=== PATIENT | female | born 1955 | race Caucasian/White ===

== ENCOUNTER 2019-08-20 10:24 | Inpatient (IN) | payer BC ==
[~2019-08-20] VITALS: Ht 167.6 cm; Wt 143.6 kg
[~2019-08-20 10:24] MED LIST: CARV3.125 PO; CRANBERRY EXTRACT; EXENATIDE; Ecotrin325 MG PO; FENO54 PO; FISH1000; FLUT.05NI; GLIM4; GLIP2.5ER PO; HYDACE5 PO; Humalog100 UNIT/1 SC; INSDET100 SC; LOSA25 PO; METF500; METF500 PO; MINO100 PO; MULVITMIND; OYSTER SHELL 51 EACH PO; RXCLIN PO; SULTRIDS PO; TELM80; VITAMIN C500 MG PO
[2019-08-20] MEDS ORDERED: Zoloft100 MG PO (10:51)
[2019-08-20] MEDS ORDERED: LOSA50 PO (10:52)
[2019-08-20] MEDS ORDERED: GLIP5 PO (10:52)
[2019-08-20] MEDS ORDERED: Heartburn Relie20 MG PO (10:53)
[2019-08-20] MEDS ORDERED: FENO145 PO (10:53)
[2019-08-20 11:00] LABS: BASOPHILS ABSOLUTE AUTO 0.03 K/mm3 (0.00-0.23); BASOPHILS PERCENT AUTO 0 % (0-2); EOSINOPHILS ABSOLUTE AUTO 0.07 K/mm3 (0.00-0.68); EOSINOPHILS PERCENT AUTO 1 % (0-6); Hematocrit 39.9 % (33.0-51.0); IMMATURE GRAN ABSOLUTE AUTO 0.02 K/mm3 (0.00-0.10); IMMATURE GRAN PERCENT AUTO 0 % (0-1); LYMPHOCYTES ABSOLUTE AUTO 1.02 K/mm3 (0.84-5.20); LYMPHOCYTES PERCENT AUTO 13 % (21-46); MONOCYTES ABSOLUTE AUTO 0.58 K/mm3 (0.16-1.47); MONOCYTES PERCENT AUTO 7 % (4-13); Mean Corpuscular HGB 30.1 pg (26.0-34.0); Mean Corpuscular HGB Conc 32.6 g/dL (31.5-36.5); Mean Corpuscular Volume 92 fL (80-100); Mean Platelet Volume 11.3 fL (9.1-12.4); NEUTROPHILS ABSOLUTE AUTO 6.46 K/mm3 (1.96-9.15); NEUTROPHILS PERCENT AUTO 79 % (41-73); Platelet Count 246 K/mm3 (150-400); RDW Coefficient Variation 12.6 % (11.7-14.2); RDW Standard Deviation 42.7 fL (35.1-46.3); Red Blood Cell Count 4.32 M/mm3 (3.80-5.20); White Blood Cell Count 8.18 K/mm3 (4.00-11.30)
[2019-08-20 11:17] LABS: Albumin, Blood 3.8 g/dL (3.4-5.0); Bilirubin, Total 0.5 mg/dL (0.1-1.0); Bun/Creatinine Ratio 24.6 (12.0-20.0); Calcium, Blood 10.3 mg/dL (8.5-10.1); Creatinine, Blood 1.18 mg/dL (0.40-1.00); Globulin, Blood 3.9 g/dL (2.2-4.0); Potassium, Blood 4.6 mmol/L (3.5-5.5); Total Protein, Blood 7.7 g/dL (6.4-8.2)
[2019-08-20 11:28] LABS: Troponin I 1.42 ng/mL (0.000-0.040)
[2019-08-20 12:34] LABS: Magnesium, Blood 2.2 mg/dL (1.6-2.4)
[2019-08-20 12:36] LABS: Thyroid Stimulating Hormone 3.98 uIU/mL (0.360-4.800)
[2019-08-20] MEDS ORDERED: LOSARTAN POTAS100 MG PO (13:46)
[2019-08-20 13:59] LABS: International Normalized Ratio 1.06; Prothrombin Time Results 11.3 Sec (9.7-11.5)
--- NOTE | 2019-08-20 17:07 | NUR ---
ECHOCARDIOGRAM COMPLETED
--- NOTE | 2019-08-20 19:14 | NUR ---
PT ARRIVAL... PT ARRIVED ON UNIT VIA GURNEY, PT WAS ABLE TO SELF TRANSFER FROM GURNEY TO BED. PT WAS ADMITTED FOR NSTEMI AND IS ON HEPARIN GTT. PT DENIES CHEST PAIN AT THIS TIME, NITRO PATCH TO THE PT'S L UPPER CHEST WALL PLACED BY PUBLIC TRANSIT BUS DRIVER. PT'S VS STABLE, PT IS ON 4L NC WITH O2 SATS>95%. PT L/S DIM T/O. NO EDEMA NOTED ON ASSESSMENT. BT PRESENT AND HYPERACTIVE, ABD IS SOFT AND NONTENDER TO PALP. PT IS TO BE NPO AFTER MIDNIGHT FOR ANGIO IN THE AM. PT UNDERSTANDS AND IS AGREEABLE TO THIS PLAN OF CARE. PT'S AND DAUGHTER ARE AT THE BEDSIDE ON ARRIVAL. CALL LIGHT IN REACH, WILL CONTINUE TO MONITOR UNTIL REPORT IS GIVEN TO ONCOMING RN.
[2019-08-20] MEDS ORDERED: CIME400 PO (20:02)
[2019-08-20 20:11] LABS: Source, Urine Clean Catch
[2019-08-20 20:17] LABS: Bilirubin, Urine Neg (Neg); Blood, Urine 5+ (Neg); Glucose Qualitative, Urine 4+ (Neg); Ketones, Urine Neg (Neg); Leukocyte Esterase, Urine 1+ (Neg); Nitrite, Urine Neg (Neg); Protein, Urine 2+ (Neg); Specific Gravity, Urine 1.025 (1.003-1.022); Urobilinogen, Urine NORM (Normal)
[2019-08-20 20:18] LABS: Appearance, Urine Hazy (Clear); Color, Urine Yellow (P-Yellow)
[2019-08-20 20:28] LABS: Bacteria Few /hpf; Squamous Epithelial Cells Rare /hpf (Few); Uric Acid Crystals Many /hpf; White Blood Cells, Urine 0-2 /hpf (0-5)
[2019-08-21 04:31] LABS: BASOPHILS ABSOLUTE AUTO 0.04 K/mm3 (0.00-0.23); BASOPHILS PERCENT AUTO 1 % (0-2); EOSINOPHILS ABSOLUTE AUTO 0.09 K/mm3 (0.00-0.68); EOSINOPHILS PERCENT AUTO 1 % (0-6); Hematocrit 34.2 % (33.0-51.0); Hemoglobin 11.2 g/dL (11.5-16.0); IMMATURE GRAN ABSOLUTE AUTO 0.04 K/mm3 (0.00-0.10); IMMATURE GRAN PERCENT AUTO 1 % (0-1); LYMPHOCYTES ABSOLUTE AUTO 1.89 K/mm3 (0.84-5.20); LYMPHOCYTES PERCENT AUTO 27 % (21-46); MONOCYTES ABSOLUTE AUTO 0.67 K/mm3 (0.16-1.47); MONOCYTES PERCENT AUTO 10 % (4-13); Mean Corpuscular HGB 29.9 pg (26.0-34.0); Mean Corpuscular HGB Conc 32.7 g/dL (31.5-36.5); Mean Corpuscular Volume 91 fL (80-100); Mean Platelet Volume 11.2 fL (9.1-12.4); NEUTROPHILS ABSOLUTE AUTO 4.33 K/mm3 (1.96-9.15); NEUTROPHILS PERCENT AUTO 61 % (41-73); Platelet Count 220 K/mm3 (150-400); RDW Coefficient Variation 12.8 % (11.7-14.2); RDW Standard Deviation 42.1 fL (35.1-46.3); Red Blood Cell Count 3.74 M/mm3 (3.80-5.20); White Blood Cell Count 7.06 K/mm3 (4.00-11.30)
[2019-08-21 04:46] LABS: International Normalized Ratio 1.12; Prothrombin Time Results 11.9 Sec (9.7-11.5)
--- NOTE | 2019-08-21 04:53 | NUR ---
SHIFT SUMMARY: -PATIENT COOPERATIVE WITH CARE, USING CALL LIGHT APPROPRIATLY, VERY MINIMAL ASSIST WITH ADL'S -ADMISSION COMPLETED -NPO SINCE 0000 -VSS, BED LOW AND LOCKED -NO ISSUES NOTED
[2019-08-21 04:55] LABS: Alanine Aminotransfer (ALT/SGP 30 U/L (12-78); Albumin, Blood 3.4 g/dL (3.4-5.0); Alk Phos 29 U/L (50-136); Anion Gap 7 mmol/L (6-16); Aspartate Aminotrans (AST/SGOT 55 U/L (12-37); Bilirubin, Total 0.5 mg/dL (0.1-1.0); Blood Urea Nitrogen 27 mg/dL (8-24); Bun/Creatinine Ratio 22.1 (12.0-20.0); CHOL/HDL RATIO 3.3; CO2, Blood 27 mmol/L (21-32); Calcium, Blood 9.8 mg/dL (8.5-10.1); Chloride, Blood 109 mmol/L (98-108); Cholesterol 92 mg/dL (50-200); Creatinine, Blood 1.22 mg/dL (0.40-1.00); Globulin, Blood 3.3 g/dL (2.2-4.0); Glomerular Filtration Rate 47 (60-); Glucose, Blood 80 mg/dL (70-99); HDL Cholesterol 28 mg/dL (>39); Potassium, Blood 3.7 mmol/L (3.5-5.5); Sodium, Blood 143 mmol/L (136-145); Total Protein, Blood 6.7 g/dL (6.4-8.2)
[2019-08-21 04:56] LABS: LDL/HDL RATIO 1.6; Low Density Lipoprotein Chol 44 mg/dL (0-110); Triglycerides 98 mg/dL (30-160); Very Low Density Lipoprot Chol 19 mg/dL (6-32)
--- NOTE | 2019-08-21 07:25 | NUR ---
AM NOTE... ASSUMED CARE OF PT APROX 0700. PT IS A&Ox4 AND IND IN THE ROOM. PT WAS ADMITTE FOR NSTEMI. PT IS NPO FOR ANGIO THIS AM. PT'S VS STABLE, PT DENIES CHEST PAIN/PRESSURE. PT'S AND FAMILY AT THE BEDSIDE. HEPARIN GTT RUNNING PER ORDERS, VERIFIED WITH MICHAEL ONEIL. PT HAS TRACE EDEMA NOTED TO HER BLE. SB IN THE 50'S-60'S PER SUPERVISOR ADVICE. L/S CLEAR IN THE UPPER LOBES AND FINE CRACKLES NOTED IN THE BASES. BT PRESENT AND HYPOACTIVE, ABD IS SOFT AND NONTENDER TO PALP. CALL LIGHT IN REACH WILL CONTINUE TO MONITOR.
--- NOTE | 2019-08-21 14:25 | NUR ---
PT UPDATE... AT APROX 1230 PT RETURNED FROM [facility]ART [facility] W/RIGHT RADIAL SITE, NO INTERVENTIONS WERE DONE. PT IS TO BE COBRA TRANSFERED TO [facility] FOR BYPASS SURGERY. PT IS AGREEABLE TO THIS PLAN OF CARE, FAMILY UPDATED. VS STABLE, TR BAND SITE IS STABLE. WILL CONTINUE TO MONITOR.
--- NOTE | 2019-08-21 18:29 | NUR ---
SHIFT SUMMARY.. NO ACUTE NEGATIVE CHAGENGES NOTED THIS SHIFT. PT HAD ANGIO W/RIGHT WRIST SITE. NO INTEVERTIONS DONE, PT IS TO COBRA TRANSFER TO [facility] FOR BYPASS. PT'S VS STABLE AT THIS TIME. PT'S HEPARIN IS TO RESUME ONCE TR BAND HAS BEEN OFF FOR 1 HOUR. PT HAD MED SIZE HEMATOMA ON HER RIGHT FORARM, PRESSURE WAS HELD FOR 10 MINS x2, PT'S RIGHT ARM IS CURRENTLY SOFT BUT TENDER. CALL LIGHT IN REACH WILL CONTINUE TO MONITOR UNTIL REPORT IS GIVEN TO ONCOMING RN.
--- NOTE | 2019-08-21 19:30 | NUR ---
RECEIVED REPORT FROM MICHAEL HOUSER. ASSUMED CARE OF PT. IN NO ACUTE DISTRESS AT THIS TIME, RESTING COMFORTABLY. DENIES ANY CHEST PAIN, PRESSURE, N/V OR SOB AT THIS TIME. TR SITE INTACT, PULSES STRONG, DENIES NUMBNESS OR TINGLING, NO BLEEDING NOTED AT THIS TIME. CALL LIGHT AND POSSESSIONS IN REACH, WILL CONTINUE TO MONITOR.
--- NOTE | 2019-08-21 22:25 | NUR ---
SPOKE TO DR. GRECO REGARDING PT'S SCHEDULED LANTUS. ORDERS RECEIVED.
--- NOTE | 2019-08-22 07:55 | NUR ---
REPORTED OFF TO MICHAEL STOCKTON. PT SITTING UP IN CHAIR, IN NO ACUTE DISTRESS. WAS MONITORED EVERY 1-2 HOURS WITH NEEDS MET. DENIES ANY NEEDS AT THIS TIME. CALL LIGHT AND POSSESSIONS IN REACH.
--- NOTE | 2019-08-22 14:02 | NUR ---
PT WARD TRANSFERED TO [facility] REPORT CALLED TO LAURA RODRIGUEZ, AT THE TIME OF DC THE PT WAS A/OX3, PLEASANT AND COOPERATIVE, APPEARED TO BE BREATHING EASILY ON RA, DENIED C/P , PT WAS TRANSFERED VIA STRETCHER, ACCOMPANIED BY [employer]
== END 2019-08-22 14:07 | disposition short-term general hospital (02) | DRG 281 ==
LOC: ER 10:24 → ERHOLD 13:15 → PCU 13:15
PROVIDERS: Emergency Medicine; Nurse Practitioner Acute Care; ADMIT Internal Medicine
PROC: 4A023N7 Measurement of Cardiac Sampling and Pressure, Left Heart, Percutaneous Approach (ICD-10-PCS; principal; 2019-08-21)
PROC: B211YZZ Fluoroscopy of Multiple Coronary Arteries using Other Contrast (ICD-10-PCS; 2019-08-21)
DX: I21.4 Non-ST elevation (NSTEMI) myocardial infarction (principal); Z68.43 Body mass index [BMI] 50.0-59.9, adult; I42.9 Cardiomyopathy, unspecified; I50.9 Heart failure, unspecified; I11.0 Hypertensive heart disease with heart failure; E11.9 Type 2 diabetes mellitus without complications; Z79.4 Long term (current) use of insulin; E78.5 Hyperlipidemia, unspecified; K21.9 Gastro-esophageal reflux disease without esophagitis; F32.9 Major depressive disorder, single episode, unspecified
CPT/HCPCS: 36415; 71045; 80053; 80061; 81001; 82947; 83036; 83735; 83880; 84443; 84484; 85025; 85610; 85730; 87086; 90686; 93005; 93010; 93306; 93458; 94660; 94762; 96365-59; 96366; 96375-59; 99152; 99285-25; C1769; C1894; G0008; J1644; J1940; J2250; J3010; J7030; Q9967

== ENCOUNTER 2019-09-10 11:48 | Emergency (ER) | payer BC ==
[~2019-09-10] VITALS: Ht 167.6 cm; Wt 140.6 kg
[~2019-09-10 11:48] MED LIST changes: +CIME400 PO; +ELIQUIS5 MG PO; +FENO145 PO; +GLIP5 PO; +Heartburn Relie20 MG PO; +LOSA50 PO; +LOSARTAN POTAS100 MG PO; +METO50ER PO; +NASACORT10.8 ML; +OMEP20ER PO; +Pravachol40 MG PO; +Zoloft100 MG PO
[2019-09-10] MEDS ORDERED: ACETAMINOPHEN500 MG PO (12:31)
== END 2019-09-10 12:40 | disposition home or self-care (01) ==
LOC: ER 11:48
DX: S16.1XXA Strain of muscle, fascia and tendon at neck level, initial encounter (principal); M54.12 Radiculopathy, cervical region; E11.9 Type 2 diabetes mellitus without complications; Z91.048 Other nonmedicinal substance allergy status; Z88.8 Allergy status to other drugs, medicaments and biological substances; Z79.899 Other long term (current) drug therapy; Z79.82 Long term (current) use of aspirin; Z79.4 Long term (current) use of insulin; Z79.01 Long term (current) use of anticoagulants; Z95.1 Presence of aortocoronary bypass graft; X58.XXXA Exposure to other specified factors, initial encounter
CPT/HCPCS: 93005; 93010; 99283-25

== ENCOUNTER 2019-10-03 11:32 | Day surgery (SDC) | payer BC ==
[~2019-10-03 11:32] MED LIST changes: +ACETAMINOPHEN500 MG PO
== END 2019-10-03 12:00 | disposition home or self-care (01) ==
LOC: WOUND 11:32
DX: S21.101A Unspecified open wound of right front wall of thorax without penetration into thoracic cavity, initial encounter (principal); E11.9 Type 2 diabetes mellitus without complications; F32.9 Major depressive disorder, single episode, unspecified; E78.00 Pure hypercholesterolemia, unspecified; I10 Essential (primary) hypertension; E66.01 Morbid (severe) obesity due to excess calories; Z79.4 Long term (current) use of insulin; Z88.8 Allergy status to other drugs, medicaments and biological substances; Z68.42 Body mass index [BMI] 45.0-49.9, adult; Z79.899 Other long term (current) drug therapy; Z79.01 Long term (current) use of anticoagulants
CPT/HCPCS: G0463

== ENCOUNTER 2019-10-05 08:30 | Day surgery (SDC) | payer BC | END 2019-10-05 23:22 | disposition home or self-care (01) | LOC: WOUND 08:30 | DX: S21.101D Unspecified open wound of right front wall of thorax without penetration into thoracic cavity, subsequent encounter (principal); E11.9 Type 2 diabetes mellitus without complications; E78.00 Pure hypercholesterolemia, unspecified; E66.01 Morbid (severe) obesity due to excess calories; I10 Essential (primary) hypertension; Z79.4 Long term (current) use of insulin; Z68.42 Body mass index [BMI] 45.0-49.9, adult; Z79.899 Other long term (current) drug therapy; Z79.82 Long term (current) use of aspirin ==

== ENCOUNTER 2019-10-12 00:21 | Day surgery (SDC) | payer BC | END 2019-10-12 22:55 | disposition home or self-care (01) | LOC: WOUND 00:21 | DX: T81.89XA Other complications of procedures, not elsewhere classified, initial encounter (principal); I25.10 Atherosclerotic heart disease of native coronary artery without angina pectoris; E11.9 Type 2 diabetes mellitus without complications; F32.9 Major depressive disorder, single episode, unspecified; E78.00 Pure hypercholesterolemia, unspecified; E66.01 Morbid (severe) obesity due to excess calories; I10 Essential (primary) hypertension; G47.30 Sleep apnea, unspecified; Y83.2 Surgical operation with anastomosis, bypass or graft as the cause of abnormal reaction of the patient, or of later complication, without mention of misadventure at the time of the procedure | CPT/HCPCS: 87071; 87075; 87077; 87147; 87186; 87205 ==

== ENCOUNTER 2019-10-18 00:13 | Day surgery (SDC) | payer BC | END 2019-10-18 23:14 | disposition home or self-care (01) | LOC: WOUND 00:13 | DX: S21.101D Unspecified open wound of right front wall of thorax without penetration into thoracic cavity, subsequent encounter (principal); E11.9 Type 2 diabetes mellitus without complications; I10 Essential (primary) hypertension; E78.00 Pure hypercholesterolemia, unspecified; E66.01 Morbid (severe) obesity due to excess calories; F32.9 Major depressive disorder, single episode, unspecified; Z86.79 Personal history of other diseases of the circulatory system; Z79.4 Long term (current) use of insulin; Z95.1 Presence of aortocoronary bypass graft; Z68.43 Body mass index [BMI] 50.0-59.9, adult ==

== ENCOUNTER 2019-10-25 00:27 | Day surgery (SDC) | payer BC | END 2019-10-25 22:44 | disposition home or self-care (01) | LOC: WOUND 00:27 | DX: S21.101A Unspecified open wound of right front wall of thorax without penetration into thoracic cavity, initial encounter (principal); I10 Essential (primary) hypertension; E78.00 Pure hypercholesterolemia, unspecified; E11.9 Type 2 diabetes mellitus without complications; F32.9 Major depressive disorder, single episode, unspecified; E66.01 Morbid (severe) obesity due to excess calories; Z79.4 Long term (current) use of insulin; Z95.1 Presence of aortocoronary bypass graft; Z68.42 Body mass index [BMI] 45.0-49.9, adult; Z79.899 Other long term (current) drug therapy; Z79.82 Long term (current) use of aspirin ==

== ENCOUNTER 2019-11-01 00:31 | Day surgery (SDC) | payer BC | END 2019-11-01 22:39 | disposition home or self-care (01) | LOC: WOUND 00:31 | DX: S21.101A Unspecified open wound of right front wall of thorax without penetration into thoracic cavity, initial encounter (principal); E11.9 Type 2 diabetes mellitus without complications; F32.9 Major depressive disorder, single episode, unspecified; E78.00 Pure hypercholesterolemia, unspecified; E66.01 Morbid (severe) obesity due to excess calories; I10 Essential (primary) hypertension; Z79.4 Long term (current) use of insulin; Z95.1 Presence of aortocoronary bypass graft; Z86.79 Personal history of other diseases of the circulatory system; Z68.42 Body mass index [BMI] 45.0-49.9, adult; Z79.899 Other long term (current) drug therapy ==

== ENCOUNTER 2019-11-15 00:26 | Day surgery (SDC) | payer BC | END 2019-11-15 22:39 | disposition home or self-care (01) | LOC: WOUND 00:26 | DX: S21.101D Unspecified open wound of right front wall of thorax without penetration into thoracic cavity, subsequent encounter (principal); E78.00 Pure hypercholesterolemia, unspecified; E66.01 Morbid (severe) obesity due to excess calories; E11.9 Type 2 diabetes mellitus without complications; F32.9 Major depressive disorder, single episode, unspecified; I10 Essential (primary) hypertension; Z79.4 Long term (current) use of insulin; Z95.1 Presence of aortocoronary bypass graft; Z68.42 Body mass index [BMI] 45.0-49.9, adult; Z79.899 Other long term (current) drug therapy; Z79.82 Long term (current) use of aspirin ==

== ENCOUNTER 2019-11-24 00:48 | Day surgery (SDC) | payer BC | END 2019-11-24 23:11 | disposition home or self-care (01) | LOC: WOUND 00:48 | DX: S21.101D Unspecified open wound of right front wall of thorax without penetration into thoracic cavity, subsequent encounter (principal); E11.9 Type 2 diabetes mellitus without complications; F32.9 Major depressive disorder, single episode, unspecified; E78.00 Pure hypercholesterolemia, unspecified; I10 Essential (primary) hypertension; E66.01 Morbid (severe) obesity due to excess calories; Z79.4 Long term (current) use of insulin; Z68.42 Body mass index [BMI] 45.0-49.9, adult; Z79.899 Other long term (current) drug therapy; Z79.82 Long term (current) use of aspirin ==

== ENCOUNTER 2019-11-29 11:20 | Day surgery (SDC) | payer BC | END 2019-11-29 22:56 | disposition home or self-care (01) | LOC: WOUND 11:20 | DX: S21.101D Unspecified open wound of right front wall of thorax without penetration into thoracic cavity, subsequent encounter (principal); X58.XXXD Exposure to other specified factors, subsequent encounter; Z79.82 Long term (current) use of aspirin; Z79.4 Long term (current) use of insulin; Z79.899 Other long term (current) drug therapy; Z88.8 Allergy status to other drugs, medicaments and biological substances ==

== ENCOUNTER 2019-12-06 00:17 | Day surgery (SDC) | payer BC | END 2019-12-06 22:43 | disposition home or self-care (01) | LOC: WOUND 00:17 | DX: S21.101D Unspecified open wound of right front wall of thorax without penetration into thoracic cavity, subsequent encounter (principal); X58.XXXD Exposure to other specified factors, subsequent encounter; I25.10 Atherosclerotic heart disease of native coronary artery without angina pectoris; Z95.1 Presence of aortocoronary bypass graft; E11.9 Type 2 diabetes mellitus without complications; F32.9 Major depressive disorder, single episode, unspecified; I10 Essential (primary) hypertension; G47.30 Sleep apnea, unspecified; E66.01 Morbid (severe) obesity due to excess calories ==

== ENCOUNTER 2019-12-13 00:22 | Day surgery (SDC) | payer BC | END 2019-12-13 22:44 | disposition home or self-care (01) | LOC: WOUND 00:22 | DX: S21.101D Unspecified open wound of right front wall of thorax without penetration into thoracic cavity, subsequent encounter (principal); X58.XXXD Exposure to other specified factors, subsequent encounter; I25.10 Atherosclerotic heart disease of native coronary artery without angina pectoris; Z95.1 Presence of aortocoronary bypass graft; E11.9 Type 2 diabetes mellitus without complications; E66.01 Morbid (severe) obesity due to excess calories; I10 Essential (primary) hypertension; F32.9 Major depressive disorder, single episode, unspecified; Z79.82 Long term (current) use of aspirin; Z79.4 Long term (current) use of insulin; Z79.899 Other long term (current) drug therapy; Z79.01 Long term (current) use of anticoagulants ==

== ENCOUNTER 2019-12-20 00:17 | Day surgery (SDC) | payer BC | END 2019-12-20 22:44 | disposition home or self-care (01) | LOC: WOUND 00:17 | DX: S21.101D Unspecified open wound of right front wall of thorax without penetration into thoracic cavity, subsequent encounter (principal); E11.9 Type 2 diabetes mellitus without complications; E78.00 Pure hypercholesterolemia, unspecified; I10 Essential (primary) hypertension; F32.9 Major depressive disorder, single episode, unspecified; Z79.4 Long term (current) use of insulin; Z79.899 Other long term (current) drug therapy; Z79.82 Long term (current) use of aspirin | CPT/HCPCS: G0463 ==

== ENCOUNTER 2020-01-03 00:19 | Day surgery (SDC) | payer BC | END 2020-01-03 22:48 | disposition home or self-care (01) | LOC: WOUND 00:19 | DX: S21.101D Unspecified open wound of right front wall of thorax without penetration into thoracic cavity, subsequent encounter (principal); X58.XXXD Exposure to other specified factors, subsequent encounter; I25.10 Atherosclerotic heart disease of native coronary artery without angina pectoris; Z95.1 Presence of aortocoronary bypass graft; E11.9 Type 2 diabetes mellitus without complications; F32.9 Major depressive disorder, single episode, unspecified; I10 Essential (primary) hypertension; E66.01 Morbid (severe) obesity due to excess calories | CPT/HCPCS: G0463 ==

== ENCOUNTER → 2020-05-08 | Outpatient (CLI) | payer BC ==
[~2020-05-08] MED LIST changes: +Aspir 8181 MG PO; +FAMO10 PO; +HUMALOG KW100 UNIT/1; +LEVEMIR FL100 UNIT/2; +METO25ER PO; +SERT100 PO; +SERT50 PO; +XARELTO15 MG PO
[2020-05-08 18:00] LABS: Source, Urine Clean Catch
[2020-05-08 19:37] LABS: Appearance, Urine Hazy (Clear); Bilirubin, Urine Neg (Neg); Blood, Urine 5+ (Neg); Color, Urine Yellow (P-Yellow); Glucose Qualitative, Urine 4+ (Neg); Ketones, Urine 1+ (Neg); Leukocyte Esterase, Urine 1+ (Neg); Nitrite, Urine Neg (Neg); Protein, Urine 2+ (Neg); Urobilinogen, Urine NORM (Normal)
[2020-05-08 20:10] LABS: Amorphous Light (0-Heavy); Bacteria Few /hpf; Red Blood Cells, Urine 50-100 /hpf (0-2); Squamous Epithelial Cells Rare /hpf (Few)
== END | disposition home or self-care (01) ==
LOC: LAB SHORT 17:58 → OLS 17:58
PROVIDERS: Internal Medicine
DX: N39.0 Urinary tract infection, site not specified (principal)
CPT/HCPCS: 81001; 87086

== ENCOUNTER 2020-05-31 11:22 | Day surgery (SDC) | payer BC ==
[~2020-05-31] VITALS: Ht 167.6 cm; Wt 127.3 kg
== END 2020-05-31 13:20 | disposition home or self-care (01) ==
LOC: ORSCSDS 11:22
PROVIDERS: Internal Medicine Gastroenterology
PROC: 0DBH8ZX Excision of Cecum, Via Natural or Artificial Opening Endoscopic, Diagnostic (ICD-10-PCS; principal; 2020-05-31 12:30)
PROC: 0DJ08ZZ Inspection of Upper Intestinal Tract, Via Natural or Artificial Opening Endoscopic (ICD-10-PCS; principal; 2020-05-31 12:30)
PROC: 0DBL8ZX Excision of Transverse Colon, Via Natural or Artificial Opening Endoscopic, Diagnostic (ICD-10-PCS; principal; 2020-05-31 12:30)
PROC: 0DBK8ZX Excision of Ascending Colon, Via Natural or Artificial Opening Endoscopic, Diagnostic (ICD-10-PCS; principal; 2020-05-31 12:30)
DX: Z12.11 Encounter for screening for malignant neoplasm of colon (principal); Z86.010 Personal history of colon polyps; R13.10 Dysphagia, unspecified; D12.0 Benign neoplasm of cecum; D12.2 Benign neoplasm of ascending colon; D12.3 Benign neoplasm of transverse colon; K22.8 Other specified diseases of esophagus; K64.8 Other hemorrhoids; I10 Essential (primary) hypertension; E11.9 Type 2 diabetes mellitus without complications; K21.9 Gastro-esophageal reflux disease without esophagitis; G47.33 Obstructive sleep apnea (adult) (pediatric); E78.00 Pure hypercholesterolemia, unspecified; Z79.82 Long term (current) use of aspirin; I48.91 Unspecified atrial fibrillation; Z79.01 Long term (current) use of anticoagulants; Z80.0 Family history of malignant neoplasm of digestive organs
CPT/HCPCS: 82947; 88305; J2704; J7120

== ENCOUNTER 2020-06-11 14:36 | Emergency (ER) | payer BC ==
[~2020-06-11] VITALS: Ht 167.6 cm; Wt 128.8 kg
[2020-06-11] MEDS ORDERED: FAMO20 PO (15:02)
[2020-06-11] MEDS ORDERED: Bactrim Ds Tab1 EACH PO (15:02)
[2020-06-11] MEDS ORDERED: CEPH500 PO (15:02)
[2020-06-11] MEDS ORDERED: ZOLOFT100 M2 PO (15:03)
[2020-06-11] MEDS ORDERED: ELIQUIS5 MG PO (15:04)
[2020-06-11] MEDS ORDERED: LEVEMIR FL100 UNIT/2 (15:04)
== END 2020-06-11 15:08 | disposition home or self-care (01) ==
LOC: ER 14:36
DX: H60.12 Cellulitis of left external ear (principal); E11.9 Type 2 diabetes mellitus without complications; Z95.1 Presence of aortocoronary bypass graft

== ENCOUNTER 2020-12-17 17:55 | Emergency (ER) | payer BC ==
[~2020-12-17] VITALS: Ht 167.6 cm; Wt 131.5 kg
[~2020-12-17 17:55] MED LIST changes: +Bactrim Ds Tab1 EACH PO; +CEPH500 PO; +FAMO20 PO; +ZOLOFT100 M2 PO
== END 2020-12-17 21:04 | disposition home or self-care (01) ==
LOC: ER 17:55
DX: S00.01XA Abrasion of scalp, initial encounter (principal); I25.10 Atherosclerotic heart disease of native coronary artery without angina pectoris; I11.0 Hypertensive heart disease with heart failure; I50.22 Chronic systolic (congestive) heart failure; I25.810 Atherosclerosis of coronary artery bypass graft(s) without angina pectoris; Z95.1 Presence of aortocoronary bypass graft; Z79.01 Long term (current) use of anticoagulants; Z79.4 Long term (current) use of insulin; Z79.899 Other long term (current) drug therapy; Z91.09 Other allergy status, other than to drugs and biological substances; Z79.82 Long term (current) use of aspirin; W01.198A Fall on same level from slipping, tripping and stumbling with subsequent striking against other object, initial encounter
CPT/HCPCS: 70450; 99283-25

== ENCOUNTER → 2021-06-06 | Outpatient (CLI) | payer SELFPAY | END | disposition home or self-care (01) | LOC: LAB SHORT 18:06 | DX: N39.0 Urinary tract infection, site not specified (principal) | CPT/HCPCS: 87077; 87086; 87186 ==

== ENCOUNTER 2021-08-13 19:26 | Inpatient (IN) | payer MEDICARE ==
[~2021-08-13] VITALS: Ht 167.6 cm; Wt 132.2 kg
[~2021-08-13 19:26] MED LIST changes: +Pravastatin Sod40 MG PO
[2021-08-13 20:07] LABS: BASOPHILS ABSOLUTE AUTO 0.02 K/mm3 (0.00-0.23); BASOPHILS PERCENT AUTO 0 % (0-2); EOSINOPHILS PERCENT AUTO 2 % (0-6); Hematocrit 35.9 % (33.0-51.0); Hemoglobin 12.3 g/dL (11.5-16.0); IMMATURE GRAN ABSOLUTE AUTO 0.03 K/mm3 (0.00-0.10); IMMATURE GRAN PERCENT AUTO 1 % (0-1); LYMPHOCYTES ABSOLUTE AUTO 1.21 K/mm3 (0.84-5.20); LYMPHOCYTES PERCENT AUTO 25 % (21-46); MONOCYTES ABSOLUTE AUTO 0.44 K/mm3 (0.16-1.47); MONOCYTES PERCENT AUTO 9 % (4-13); Mean Corpuscular HGB 30.1 pg (26.0-34.0); Mean Corpuscular HGB Conc 34.3 g/dL (31.5-36.5); Mean Corpuscular Volume 88 fL (80-100); Mean Platelet Volume 11.5 fL (9.1-12.4); NEUTROPHILS PERCENT AUTO 63 % (41-73); Platelet Count 145 K/mm3 (150-400); RDW Coefficient Variation 12.6 % (11.7-14.2); RDW Standard Deviation 40.1 fL (35.1-46.3); Red Blood Cell Count 4.08 M/mm3 (3.80-5.20)
[2021-08-13 20:35] LABS: Albumin, Blood 3.7 g/dL (3.4-5.0); Albumin/Globulin Ratio 1.1 (0.8-1.8); Bilirubin, Total 0.6 mg/dL (0.1-1.0); Bun/Creatinine Ratio 28.1 (12.0-20.0); Calcium, Blood 9.3 mg/dL (8.5-10.1); Creatinine, Blood 1.67 mg/dL (0.40-1.00); Globulin, Blood 3.3 g/dL (2.2-4.0); Potassium, Blood 4.1 mmol/L (3.5-5.5); Troponin I 0.028 ng/mL (0.000-0.040)
--- NOTE | 2021-08-14 05:21 | NUR ---
PT ADMITTED AT APPROX 0405 FOR C/O CHEST PAIN AND ELEVATED TROPONINS. PT DENIES CP UPON ARRIVAL. VSS. DENIES SOB. TELE PLACED PER ORDERS; NSR AT 60. PLAN FOR STRESS TEST TODAY. WILL KEEP NPO.
[2021-08-14 06:45] LABS: CHOL/HDL RATIO 4.1; Cholesterol 149 mg/dL (50-200); HDL Cholesterol 36 mg/dL (>39); Low Density Lipoprotein Chol 72 mg/dL (0-110); Triglycerides 203 mg/dL (30-160); Very Low Density Lipoprot Chol 40 mg/dL (6-32)
--- NOTE | 2021-08-14 14:38 | NUR ---
Pt. was alert and welcomed my visit. Through empathetic listening, rapport was created and common connections were identified. Pt. showed some unsettledness to the lack of clarity to her diagnosis. Normalized patient experience, and facilitated life review. Pt. displayed evidence of trust and relaxation, and verbalized her gratitude for the visit. Prayed for pt.
--- NOTE | 2021-08-14 17:20 | NUR ---
OOB TO CHAIR, DENIED ANY CHEST PAIN T/O SHIFT, INDEPENDENT IN ROOM, HAD RESTING STRESS TEST DONE TODAY, STRESS PORTION IN AM, TOLERATING DIET WELL, NO ACUTE CHANGES THIS SHIFT.
--- NOTE | 2021-08-15 06:18 | NUR ---
SHIFT SUMMARY 1ST PART OF STRESS TEST COMPLETE, PENDING 2ND PART LATER TODAY, A/OX4, VSS, NO ACUTE EVENTS THIS SHIFT. CALL LIGHT IN REACH, WILL CTM AND REPORT TO DAY RN.
--- NOTE | 2021-08-15 17:14 | NUR ---
SHIFT SUMMARY: CHEST PAIN PATIENT IS ALERT AND ORIENTED X4. VS ARE WNL AND IS ON RA. PATIENT HAS DENIED CHEST PAIN AND/OR PRESSURE THROUGHOUT SHIFT. SHE HAD HER SECOND STRESS TEST DONE TODAY. DR. DOMINGUEZ HAS BODY WORK AUTO TRIMMER CONSULTED. DR. LORENZ THE BODY WORK AUTO TRIMMER WILL BE COMING IN SHORTLY TO HAVE THE CONSULT DONE. SHE IS TOLERATING PO INTAKE AND IS VOIDING. SHE IS IND. IN THE ROOM. CALLS APPROPRIATELY. CALL LIGHT WITHIN REACH. AWAITING TO HEAR WHAT DR. LORENZ HAS TO SAY TO PATIENT TO MAKE A PLAN FOR HER.
--- NOTE | 2021-08-15 17:37 | NUR ---
PATIENT WILL BE HAVING A STENT PLACED WELL HAVING HER CABG CHECKED TOMORROW. SHE WILL BE NPO AT MIDNIGHT TONIGHT. PATIENT IS AWARE AND TALKED WITH DR. LORENZ ABOUT IT. CALL LIGHT WITHIN REACH.
[2021-08-16 02:25] LABS: Influenza A, PCR NEGATIVE (NEGATIVE); Influenza B, PCR NEGATIVE (NEGATIVE); Resp Syncytial Virus, PCR NEGATIVE (NEGATIVE); SARS-Cov-2 (COVID-19) PCR, MMC NEGATIVE (NEGATIVE)
--- NOTE | 2021-08-16 04:56 | NUR ---
PHONE CALL TO PHYSICIAN RN WAS NOTIFIED BY [employer] THAT PT HAD AN EPISODE OF BRADYCARDIA AT 0450 THIS MORNING, LASTING 2-3 MINUTES. RN ASSESSED PT, WHO WAS SLEEPING. PT DENIED CHEST PAIN, SOB, DIZZINESS, OR ADVERSE SYMPTOMS. RN PLACED CALL TO HOSPITALIST DR. MOSHER. DR. MOSHER WITH ORDERS TO MONITOR PT, AND PERFORM AN EKG IF SHE EXPERIENCES ANOTHER EPISODE OF BRADYCARDIA. RN THEN CALLED OVERLOCKER JOHNNY AND REQUESTED TO BE NOTIFIED IF PT'S HEART RATE WAS LESS THAN 50.
--- NOTE | 2021-08-16 05:21 | NUR ---
SHIFT SUMMARY KEVAN DENIES CHEST PAIN, SOB, OR HEART BURN FEELING THROUGH OUT SHIFT. TELEMETRY MONITORED PT AT SINUS NICK IN 50'S - 60'S UNTIL 0450 WHEN SHE HAD A 2-3 MINUTE OF BRADYCARDIA IN THE 45-50 RANGE. RN ASSESSED PT, WHO WAS SLEEPING, WHO DENIED CP, SOB, OR DIZZINESS. KEVAN IS INDEPENDENT IN THE ROOM. PLANNING FOR CORONARY ANGIOGRAM THIS MORNING. NPO. NEGATIVE COVID TEST. WILL CONTINUE TO MONITOR.
--- NOTE | 2021-08-16 10:56 | NUR ---
PT. TO ANGIO VIA W/C AT THIS TIME. DENIES CP, PERSONAL BELONGINGS TAKEN TO PCU ROOM 19.
--- NOTE | 2021-08-16 18:36 | NUR ---
ARRIVAL PCU / SHIFT SUMMARY PT BROUGHT TO PCU-19 BY BED FROM MACHINE FIXER @ APPROX 1230 AFTER ANGIO. PT A&O X4. VSS. MONITOR SHOWING SB, HR 40's-50's. SPO2 > 92% ON RA. TR BAND RECOVERY WNL. L RADIAL ACCESS SITE W/ NO BLEEDING, NO HEMATOMA. TRANSPARENT DRESSING APPLIED & ARM BOARD IN PLACE. ORDERS FOR HEPARIN GTT TO BE INITIATED @ 2200 TONIGHT PER PHARMACY.
[2021-08-16 21:07] LABS: Anti-Xa UFH, PHA Monitoring <0.10 IU/mL; International Normalized Ratio 1.04; Prothrombin Time Results 10.9 Sec (9.7-11.5)
--- NOTE | 2021-08-17 06:11 | NUR ---
SHIFT SUMMARY ASSUMED CARE OF PT AT 1900. PT IS A/OX4. HEART SOUNDS REGULAR, LUNG SOUNDS CLEAR. HEPRIN RESTARTED AT 0. PT IS A 1P SBA TO BATHROM. NO COMPLAINTS. CALL LIGHT IN REACH, BED IN LOWEST POSITION.
--- NOTE | 2021-08-17 13:12 | NUR ---
APTT ELEVATED AT 115.6; NOTIFIED PHARMACY, PLANS TO HOLD UNTIL 1430 AND RESTART AT LOWER RATE; PLACED ON STAND BY; NOTIFIED DR GRANADO, PT REPORT SMALL BLEED FROM FOREARM WHERE OLD IV AND VEINAPUNCTURE AND SCRATCH TO EAR. WILL CONTINUE TO MONITOR.
[2021-08-17 15:44] LABS: Hematocrit 33.7 % (33.0-51.0); Hemoglobin 11.6 g/dL (11.5-16.0); Mean Corpuscular HGB 30.4 pg (26.0-34.0); Mean Corpuscular HGB Conc 34.4 g/dL (31.5-36.5); Mean Corpuscular Volume 88 fL (80-100); Mean Platelet Volume 11.7 fL (9.1-12.4); Platelet Count 153 K/mm3 (150-400); RDW Coefficient Variation 12.4 % (11.7-14.2); RDW Standard Deviation 39.8 fL (35.1-46.3); Red Blood Cell Count 3.82 M/mm3 (3.80-5.20)
[2021-08-17 16:49] LABS: Bun/Creatinine Ratio 27.4 (12.0-20.0); Calcium, Blood 8.5 mg/dL (8.5-10.1); Creatinine, Blood 1.35 mg/dL (0.40-1.00); Potassium, Blood 4.4 mmol/L (3.5-5.5)
--- NOTE | 2021-08-17 17:53 | NUR ---
SHIFT SUMMARY PT A&Ox4; CALM AND COOPERATIVE WITH CARE. PT UP IN ROOM IND T/O SHIFT. PT DENIES PAIN, CHEST PAIN, SOB, NAUSEA AND DIZZINESS. PT ON HEPARIN GTT; HELD THIS AFTERNOON PER PHARMACY FOR CRIT APTT; RESTARTED PT ORDERS AT A REDUCED RATED. SPO2 >90% ON RA. PLANS FOR POSSIBLE ANGIO TOMORROW, NPO AT [facility]. VSS. NO OTHER ACUTE CHANGES NOTED. WILL CONTINUE TO MONITOR UNTIL REPORT GIVEN TO ONCOMING RN.
--- NOTE | 2021-08-18 05:54 | NUR ---
SHIFT SUMMARY PATIENT IS A PLESANT LADY WHO IS A&OX4 AND UP IND IN ROOM. SHOWERED BEFORE BED.LEFT RADIAL CATH SITE C/D/I WITHOUT SIGNS OF HEMATOMA. NO CHEST PAIN ALL SHIFT. VSS. ON RA. SINUS NICK ON THE MONITOR IN THE 50'S-60'S. HEPARIN DRIP RUNNING PER ORDER. NPO AFTER MIDNIGHT FOR PROCEDURE THIS AM BUT OTHERWISE TOLERATED ADA DIET. VOIDING WITHOUT ISSUE WITH BATHROOM PRIVLEDGES. NO ACUTE CONCERNS AT THIS TIME. WILL CONTINUE PLAN OF CARE UNTIL REPORT GIVEN TO LALITHA RODRIGUEZ.
--- NOTE | 2021-08-18 09:53 | NUR ---
Pt headed to heart cath at 0945. VSS on RA. A&O. Heparin gtt was stopped when logging rafter laborer picked up pt.
--- NOTE | 2021-08-18 12:08 | NUR ---
Pt returned from [facility]. Right radial site assessed. No hematoma, some blood pooling around TR band, will continue to monitor. Re-enforced restriction on right arm. Pulse ox placed on right fingers, good reading.
--- NOTE | 2021-08-18 16:38 | NUR ---
Shift note: Shift note: Pt is A&O, pretty drowsy after heart cath. VSS on RA. HR has been mainly in 50s, with brief drops into 40s in AM, metoprolol was held this AM. Pt went to heart center and right radial site with balooning of distal LM. They attempted the shockave heart cath procedure to the circumflex, but were unable to get to the area needed. See Cardiology note for more details. Burlapper updated at bedside. Medical manage and potential referral to pdx outpt. There were 12cc in TR band. Removed all 12cc at this time and will remove the band at 1700. CBG 159-260, sliding scale given as well as 5units with each meal. Tele: SB 40-50s. Heparin gtt was d/c once pt was back from heart cath per cardiology.
--- NOTE | 2021-08-18 21:47 | NUR ---
ASSUMED CARE OF PT AT 1900. VERY PLEASANT PATIENT A/OX4, SITTING UP IN BED WATCHING TELEVISION. MAINTAINS ABOVE 95% ON RA, LS CLEAR ON TOP AND INSP WHEEZE AT BASES. SB ON TELE W/MURMUR. L RADIAL C/D/I, R RADIAL C/D/I WITH BRACING BOARD IN PLACE. NPO AT MIDNIGHT. NO CP/PRESSURE. VSS. WILL UPDATE CHANGES OCCUR.
[2021-08-19 04:15] LABS: Hematocrit 33.7 % (33.0-51.0); Hemoglobin 11.4 g/dL (11.5-16.0); Mean Corpuscular HGB 30.2 pg (26.0-34.0); Mean Corpuscular HGB Conc 33.8 g/dL (31.5-36.5); Mean Corpuscular Volume 89 fL (80-100); Mean Platelet Volume 11.1 fL (9.1-12.4); Platelet Count 157 K/mm3 (150-400); RDW Coefficient Variation 12.8 % (11.7-14.2); Red Blood Cell Count 3.77 M/mm3 (3.80-5.20); White Blood Cell Count 4.05 K/mm3 (4.00-11.30)
[2021-08-19 04:46] LABS: Bun/Creatinine Ratio 25.7 (12.0-20.0); Creatinine, Blood 1.36 mg/dL (0.40-1.00); Potassium, Blood 4.4 mmol/L (3.5-5.5)
[2021-08-19] MEDS ORDERED: CLOP75 PO (14:09)
--- NOTE | 2021-08-19 15:15 | NUR ---
Pt is A&O, pleasant with cares. VSS on RA. Right radial site looks good, soft nontender. D/C instructions gone over with pt on radial site and on anticoag medications. Plavix and eliquis were called into pharmacy. was ride home.
== END 2021-08-19 19:38 | disposition home or self-care (01) | DRG 251 ==
LOC: ER 19:26 → SURS 19:27 → PCU 08-16 11:10
PROVIDERS: Family Medicine; Hospitalist; Internal Medicine Cardiovascular Disease; Internal Medicine Interventional Cardiology; Physician Assistant; ADMIT Family Medicine
PROC: 4A023N7 Measurement of Cardiac Sampling and Pressure, Left Heart, Percutaneous Approach (ICD-10-PCS; principal; 2021-08-16)
PROC: B2111ZZ Fluoroscopy of Multiple Coronary Arteries using Low Osmolar Contrast (ICD-10-PCS; 2021-08-16)
PROC: B2131ZZ Fluoroscopy of Multiple Coronary Artery Bypass Grafts using Low Osmolar Contrast (ICD-10-PCS; 2021-08-16)
PROC: B2181ZZ Fluoroscopy of Left Internal Mammary Bypass Graft using Low Osmolar Contrast (ICD-10-PCS; 2021-08-16)
PROC: 4A023N7 Measurement of Cardiac Sampling and Pressure, Left Heart, Percutaneous Approach (ICD-10-PCS; 2021-08-18)
PROC: B2181ZZ Fluoroscopy of Left Internal Mammary Bypass Graft using Low Osmolar Contrast (ICD-10-PCS; 2021-08-18)
PROC: 02F13ZZ Fragmentation in Coronary Artery, Two Arteries, Percutaneous Approach (ICD-10-PCS; 2021-08-18)
PROC: 02713ZZ Dilation of Coronary Artery, Two Arteries, Percutaneous Approach (ICD-10-PCS; 2021-08-18)
DX: I25.810 Atherosclerosis of coronary artery bypass graft(s) without angina pectoris (principal); I50.22 Chronic systolic (congestive) heart failure; I13.0 Hypertensive heart and chronic kidney disease with heart failure and stage 1 through stage 4 chronic kidney disease, or unspecified chronic kidney disease; Z68.42 Body mass index [BMI] 45.0-49.9, adult; E87.1 Hypo-osmolality and hyponatremia; Z20.822 Contact with and (suspected) exposure to COVID-19; E11.22 Type 2 diabetes mellitus with diabetic chronic kidney disease; I48.0 Paroxysmal atrial fibrillation; K21.9 Gastro-esophageal reflux disease without esophagitis; E66.01 Morbid (severe) obesity due to excess calories; F32.A Depression, unspecified; R10.11 Right upper quadrant pain; N18.32 Chronic kidney disease, stage 3b; I25.2 Old myocardial infarction; Z95.1 Presence of aortocoronary bypass graft; Z87.442 Personal history of urinary calculi; Z90.89 Acquired absence of other organs; Z98.890 Other specified postprocedural states; Z88.8 Allergy status to other drugs, medicaments and biological substances; Z91.048 Other nonmedicinal substance allergy status; Z79.4 Long term (current) use of insulin; Z79.01 Long term (current) use of anticoagulants; Z79.82 Long term (current) use of aspirin; Z79.899 Other long term (current) drug therapy
CPT/HCPCS: 0241U; 36415; 36416; 71046; 76705; 76937; 78452; 80048; 80053; 80061; 82947; 83690; 84484; 85025; 85027; 85347; 85520; 85610; 85730; 92920; 92924; 93005; 93010; 93017; 93454; 93455; 94762; 99152; 99153; 99285-25; A9270; A9500; C1725; C1769; C1887; C1894; G0378; J0706; J1644; J1815; J1940; J2250; J2785; J3010; J7030; J7050; Q9967